=== PATIENT | female | born 1960 | race Caucasian/White ===

== ENCOUNTER 2023-09-19 15:39 | Day surgery (SDC) | payer OTHER ==
[2023-09-19] MEDS ORDERED: Decadron 4 MG INJ IV ONE (15:40)
[2023-09-19] MEDS ORDERED: Sodium Chloride 0.9(Preservative Free) 10 ML IJ ONE (15:40)
[2023-09-19] MEDS ORDERED: XYLOCAINE-MPF 1% 5ML SDV IJ ONE (15:40)
[2023-09-19] MEDS ORDERED: Lactated Ringers 1,000 ML IV ONE (17:56)
--- NOTE | 2023-09-19 20:57 | XRAY ---
Indication: Cervical ALTON. Intraoperative fluoroscopy provided for 26 seconds. 3 digital spot images submitted for interpretation demonstrates posterior needle tip projecting posterior to cervical thoracic junction. Small amount of contrast injected for needle tip placement. Correlate with intraoperative findings/report.
--- NOTE | 2023-09-20 08:46 | XRAY ---
26 seconds of fluoroscopy was used in surgery for a cervical ALTON.
== END 2023-09-19 18:30 | disposition home or self-care (01) ==
LOC: SDC-PAIN 15:39
PROVIDERS: ATTEND Psychiatry & Neurology Pain Medicine
DX: M54.16 Radiculopathy, lumbar region (principal); E11.9 Type 2 diabetes mellitus without complications; Z79.899 Other long term (current) drug therapy
CPT/HCPCS: 62321; 72040; 77003; 82947; J1100; Q9966